=== PATIENT | male | born 1970 | race Hispanic/Latino ===

== ENCOUNTER 2017-02-08 17:50 | Emergency (ER) | payer SELFPAY ==
[2017-02-08] MEDS ORDERED: Naloxone 0.4 mg/ml Inj (Adult) ONE (17:58)
[2017-02-08] MEDS ORDERED: Naloxone 0.4 mg/ml Inj (Adult) IVP STA (18:11)
[2017-02-08] MEDS ORDERED: Sodium Chloride 0.9% 1,000 ML IV STA (18:11)
--- NOTE | 2017-02-08 18:17 | ED PDOC ---
Arrival/HPI - General Chief Complaint: Altered Mental Status Time Seen by Provider: 02/08/17 18:04 Historian: Patient - History of Present Illness Narrative History of Present Illness (Text): 02/08/17 18:10 A 46 year old male, who denies any significant past medical history, was bibems s/p being found in his friend's bathroom with needles around him. Patient was on the ground hypoventilator and cyanotic. Patient was given 4 mg of Narcan and return of better spontaneously respiratory pattern. Patient was brought in to the emergency department with bag valve mask. In the emergency department, patient was given another 1.6 of Narcan iv push and woke up. Admits to taking IV "dope". Patient reports usual state of health. Denies any heroine problem, used it since yesterday, Recently relapsed since yesterday. Denies any suicidal ideation, homicidal ideation or any other complaints at this time. Reports he is fine and wants to go back to sleep. Symptom Onset: Sudden Symptom Course: Improving Activities at Onset: Rest Associated Symptoms (Text): none Past Medical History - Provider Review Nursing Documentation Reviewed: Yes - Infectious Disease Hx of Infectious Diseases: None - Psychiatric Hx Substance Use: Yes Family/Social History - Physician Review Nursing Documentation Reviewed: Yes Family/Social History: No Known Family HX Smoking Status: Unknown If Ever Smoked Hx Alcohol Use: No Hx Substance Use: Yes Substance used: Heroin Allergies/Home Meds Allergies/Adverse Reactions: Allergies No Known Allergies Allergy (Verified 02/08/17 18:02) Home Medications: Home Meds Medication Instructions Recorded Confirmed No Known Home Med 02/08/17 02/08/17 Review of Systems - Physician Review All systems were reviewed & negative as marked: Yes - Review of Systems Gastrointestinal: absent: Abdominal Pain Psychiatric: absent: Suicidal Ideation, Other (homicidal ideation, auditory hallucinations) Physical Exam Vital Signs Reviewed: Yes Vital Signs Temp Pulse Resp BP Pulse Ox 02/08/17 22:00 98.4 F 78 18 101/60 97 02/08/17 18:53 97.9 F 86 16 103/75 90 L 02/08/17 17:57 98 H 12 126/83 87 L Blood Pressure: Normal Pulse: Regular Respiratory Rate: Normal Appearance: Positive for: Other (diaphoretic) Pain Distress: None Mental Status: Positive for: Alert and Oriented X 3 - Systems Exam Head: Present: Atraumatic, Normocephalic Pupils: Present: PERRL Extroacular Muscles: Present: EOMI Conjunctiva: Present: Normal Mouth: Present: Moist Mucous Membranes Neck: Present: Normal Range of Motion Respiratory/Chest: Present: Clear to Auscultation, Good Air Exchange. No: Respiratory Distress, Accessory Muscle Use Cardiovascular: Present: Regular Rate and Rhythm, Normal S1, S2. No: Murmurs Abdomen: Present: Normal Bowel Sounds. No: Tenderness, Distention, Peritoneal Signs Back: Present: Normal Inspection Upper Extremity: Present: Normal Inspection. No: Cyanosis, Edema Lower Extremity: Present: Normal Inspection. No: Edema Neurological: Present: GCS=15, CN II-XII Intact, Speech Normal Skin: Present: Warm, Dry, Normal Color. No: Rashes Psychiatric: Present: Alert, Oriented x 3, Normal Insight, Normal Concentration Medical Decision Making ED Course and Treatment: 02/08/17 19:20 Impression: A 46 year old male brought in by EMS for IV heroine overdose. Plan: -- EKG -- labs -- chest xray -- Urinalysis -- Narcan, IV fluids -- Reassess and disposition Progress Notes: EKG: Ordered, reviewed, and independently interpreted the EKG. Rate : 101 BPM Rhythm : sinus tachycardia Interpretation : QT prolonged 521 ms, no other arrhythmogenic intervals, no ischemic ST/T segments Comparison : No previous EKG for comparison. 02/08/17 22:48 pt is remorseful regarding what he ststes is his purely recreational use of heroin , and denies addiction, he is eager to go to work in the morning, and is ready for discharge denying any si/hi/ah/vh/ nor intentional oversode today as well refusiing offers for detox. - Lab Interpretations Lab Results: 02/08/17 18:35 02/08/17 18:35 Lab Results 02/08/17 21:30: Urine Opiates Screen Positive H, Urine Methadone Screen Negative , Ur Barbiturates Screen Negative, Ur Phencyclidine Scrn Negative, Ur Amphetamines Screen Negative, U Benzodiazepines Scrn Negative, U Oth Cocaine Metabols Negative, U Cannabinoids Screen Negative 02/08/17 21:30: Urine Color Yellow, Urine Appearance Clear, Urine pH 6.0, Ur Specific [place] >= 1.030, Urine Protein 100 H, Urine Glucose (UA) 100 H, Urine Ketones Negative, Urine Blood Negative, Urine Nitrate Negative, Urine Bilirubin Negative, Urine Urobilinogen 0.2, Ur Leukocyte Esterase Negative, Urine RBC 2 - 5, Urine WBC 2 - 5, Ur Epithelial Cells 0 - 2, Urine Bacteria Small, Urine Other Mucus 02/08/17 18:35: Alcohol, Quantitative < 10 02/08/17 18:35: Salicylates < 1 L, Acetaminophen < 10.0 L 02/08/17 18:35: Sodium 138, Potassium 3.4 L, Chloride 101, Carbon Dioxide 22, Anion Gap 18, BUN 15, Creatinine 1.1, Est GFR ( Amer) > 60, Est GFR (Non- Af Amer) > 60, Random Glucose 272 H, Calcium 8.8, Total Bilirubin 0.5, AST 31, ALT 40, Alkaline Phosphatase 84, Total Protein 7.3, Albumin 4.3, Globulin 3.0, Albumin/Globulin Ratio 1.4 02/08/17 18:35: WBC 13.0 H, RBC 4.97, Hgb 15.2, Hct 46.2, MCV 93.0, MCH 30.6, MCHC 32.9, RDW 12.9, Plt Count 326, MPV 10.0, Gran % 43.8 L, Lymph % (Auto) 45.2 H, [place] % (Auto) 9.1 H, Eos % (Auto) 1.4 L, Baso % (Auto) 0.5, Gran # 5.71 , Lymph # 5.9 H, [place] # 1.2 H, Eos # 0.2, Baso # 0.06 I have reviewed the lab results: Yes - RAD Interpretation Radiology Orders: 02/08/17 18:12 CHEST PORTABLE [RAD] Stat - EKG Interpretation Interpreted by ED Physician: Yes Type: 12 lead EKG - Medication Orders Current Medication Orders: Discontinued Medications Sodium Chloride (Sodium Chloride 0.9%) 1,000 mls @ 1,000 mls/hr IV .Q1H STA Stop: 02/08/17 19:10 Last Admin: 02/08/17 18:15 Dose: 1,000 mls/hr eMAR Start Stop Document 02/08/17 18:15 EWO (Rec: 02/08/17 18:44 EWO [id number]) Intravenous Solution Start Date 02/08/17 Start Time 18:15 End Date 02/08/17 End time 19:15 Total Infusion Time 60 Naloxone HCl (Narcan) 1.6 mg IVP STAT STA Stop: 02/08/17 18:12 Last Admin: 02/08/17 18:00 Dose: 1.6 mg IVP Administration Document 02/08/17 18:00 EW (Rec: 02/08/17 18:44 [facility] [id number]) Charges for Administration # of IVP Administrations 1 - Scribe Statement The provider has reviewed the documentation as recorded by the Scribe Min Russell All medical record entries made by the Scribe were at my direction and personally dictated by me. I have reviewed the chart and agree that the record accurately reflects my personal performance of the history, physical exam, medical decision making, and the department course for this patient. I have also personally directed, reviewed, and agree with the discharge instructions and disposition. Disposition/Present on Arrival - Present on Arrival Any Indicators Present on Arrival: No History of DVT/PE: No History of Uncontrolled Diabetes: No Urinary Catheter: No History of Decub. Ulcer: No History Surgical Site Infection Following: None - Disposition Have Diagnosis and Disposition been Completed?: Yes Diagnosis: Heroin overdose Disposition: HOME/ ROUTINE Disposition Time: 22:52 Patient Plan: Discharge Condition: IMPROVED Discharge Instructions (ExitCare): Opioid Overdose (ED) Print Language: [place] Additional Instructions: Don't abuse opioids they will destroy your health, your life and your reputation. Referrals: PCP,NO [Primary Care Provider] - Follow up with primary Forms: [employer] ([place])
[2017-02-08 19:10] LABS: BASO # 0.06 K/mm3 (0.0-2.0); BASO % 0.5 % (0.0-3.0); EOS # 0.2 (0.0-0.7); EOS % 1.4 % (1.5-5.0); GRAN # 5.71 (1.4-6.5); GRAN % 43.8 % (50.0-68.0); HEMATOCRIT 46.2 % (42.0-52.0); LYMPH # 5.9 (1.2-3.4); LYMPH % 45.2 % (22.0-35.0); MEAN CORPUSCULAR HEMOGLOBIN 30.6 pg (25.0-35.0); MEAN CORPUSCULAR HGB CONC 32.9 g/dl (31.0-37.0); MONO # 1.2 (0.1-0.6); MONO % 9.1 % (1.0-6.0); RED CELL DISTRIBUTION WIDTH 12.9 % (11.5-14.5)
[2017-02-08 19:18] LABS: ALB/GLOB RATIO 1.4 (1.1-1.8); ALKALINE PHOSPHATASE 84 U/L (38-126); ALT/SGPT 40 U/L (7-56); AST/SGOT 31 U/L (17-59); BILIRUBIN,TOTAL 0.5 mg/dL (0.2-1.3); BLOOD UREA NITROGEN 15 mg/dL (7-21); CALCIUM 8.8 mg/dL (8.4-10.5); CARBON DIOXIDE 22 mmol/L (21-33); CHLORIDE 101 mmol/L (98-107); GFR AFRICAN-AMERICAN > 60; GLUCOSE,RANDOM 272 mg/dL (70-110); POTASSIUM 3.4 mmol/L (3.6-5.0); SODIUM 138 mmol/L (132-148); TOTAL PROTEIN 7.3 g/dL (5.8-8.3)
[2017-02-08 21:45] LABS: URINE BILIRUBIN NEGATIVE (NEGATIVE); URINE BLOOD NEGATIVE (NEGATIVE); URINE GLUCOSE (UA) 100 mg/dL (NEGATIVE); URINE KETONE NEGATIVE (NEGATIVE); URINE LEUKOCYTE ESTERASE NEGATIVE Leu/uL (NEGATIVE); URINE PROTEIN 100 mg/dL (<30 mg/dL); URINE UROBILINOGEN 0.2 E.U./dL (<1 E.U./dL)
[2017-02-08 21:46] LABS: URINE APPEARANCE CLEAR (CLEAR); URINE COLOR YELLOW (YELLOW)
[2017-02-08 22:12] LABS: URINE BACTERIA SMALL (NEG); URINE EPITHELIAL CELLS 0 - 2 /hpf (0-5)
[2017-02-08 22:35] VITALS: RESP 18; O2SAT 97
[2017-02-08 23:07] VITALS: BP 100/82; PULSE 70; TEMP 98.6
--- NOTE | 2017-02-09 08:29 | RAD ---
HISTORY: sob COMPARISON: No prior. FINDINGS: LUNGS: No active pulmonary disease. PLEURA: No significant pleural effusion identified, no pneumothorax apparent. CARDIOVASCULAR: The heart is normal in size. There is mild vascular congestion OSSEOUS STRUCTURES: No significant abnormalities. VISUALIZED UPPER ABDOMEN: Normal. OTHER FINDINGS: None. IMPRESSION: Mild vascular congestion
--- NOTE | 2017-02-09 17:45 | CARD ---
APPROVED REPORT EKG Measurement Heart [id number] <Conclusion> Sinus tachycardia Otherwise normal ECG
== END 2017-02-08 23:06 | disposition home or self-care (01) ==
LOC: EDBD 17:50 → ED 17:50
DX: T40.1X4A Poisoning by heroin, undetermined, initial encounter (principal); Y92.89 Other specified places as the place of occurrence of the external cause
CPT/HCPCS: 71010; 80053; 81001; 85025; 93005; 96361; 96374; 99285; G0480; J2310; J7040